=== PATIENT | female | born 1980 | race Caucasian/White ===

== ENCOUNTER → 2019-12-12 | Outpatient (REF) | payer OTHER ==
[~2019-12-12] MED LIST: INFL10VL IV; METH2.5T48 PO
[2019-12-12 17:08] LABS: BASO % 0.3 % (0.0-1.0); EOS % 0.6 % (0.0-3.0); HEMATOCRIT 41.9 % (36.0-47.0); HEMOGLOBIN 14.6 g/dl (12.0-15.5); LYMPH # 2.1 10^3/uL (1.5-5.0); LYMPH % 32.7 % (24.0-44.0); MEAN CORPUSCULAR HEMOGLOBIN 31.6 pg (27.0-33.0); MEAN CORPUSCULAR HGB CONC 34.8 g/dl (32.0-36.5); MEAN CORPUSCULAR VOLUME 90.7 fl (80.0-96.0); MONO # 0.3 10^3/uL (0.0-0.8); MONO % 4.6 % (0.0-5.0); NEUTROPHILS % 61.3 % (36.0-66.0); PLATELET COUNT, AUTOMATED 168 10^3/uL (150-450); RED BLOOD COUNT 4.62 10^6/uL (4.00-5.40); WHITE BLOOD COUNT 6.5 10^3/uL (4.0-10.0)
[2019-12-12 17:32] LABS: ALBUMIN 4.5 GM/DL (3.2-5.2); ALT/SGPT 39 U/L (12-78); BILIRUBIN,TOTAL 0.7 MG/DL (0.2-1.0); BLOOD UREA NITROGEN 9 MG/DL (7-18); C REACTIVE PROTEIN QUANTITATIV < 0.30 MG/DL (0.00-0.30); CALCIUM LEVEL 8.6 MG/DL (8.5-10.1); CARBON DIOXIDE LEVEL 25 MEQ/L (21-32); CHLORIDE LEVEL 111 MEQ/L (98-107); CREATININE FOR GFR 0.76 MG/DL (0.55-1.30); GLOMERULAR FILTRATION RATE > 60.0 (>58); GLUCOSE, FASTING 94 MG/DL (70-100); POTASSIUM SERUM 3.8 MEQ/L (3.5-5.1); SODIUM LEVEL 141 MEQ/L (136-145)
[2019-12-12 17:50] LABS: ERYTHROCYTE SEDIMENTATION RATE 6 mm/hr (0-20)
[2019-12-14 11:30] LABS: HEPATITIS B SURFACE ANTIGEN NEGATIVE (NEGATIVE)
[2019-12-14 14:05] LABS: HEPATITIS C VIRUS ABY INDEX < 0.0 INDEX (<0.8)
== END ==
LOC: M SFHCRHEU 14:41
PROVIDERS: ATTEND Internal Medicine
DX: M45.9 Ankylosing spondylitis of unspecified sites in spine (principal)
CPT/HCPCS: 36415; 80053; 85025; 85652; 86140; 86480; 86704; 86803; 87340; G0463

== ENCOUNTER 2019-12-20 07:25 | Outpatient (CLI) | payer OTHER ==
[~2019-12-20] VITALS: Ht 162.6 cm; Wt 79.5 kg
[2019-12-20 07:30] VITALS: BP 117/58
[2019-12-20] MEDS ORDERED: LORATADINE 10 MG TAB PO ONE (07:45)
[2019-12-20] MEDS ORDERED: inFLIXimab INJECTION 400 MG in NS 210 ML IV ONE (07:45)
[2019-12-20] MEDS ORDERED: ACETAMINOPHEN TAB 650MG DOSE (2X325MG) PO ONE (07:45)
[2019-12-20] MEDS ORDERED: METH2.5T48 PO (07:57)
[2019-12-20] MEDS ORDERED: INFL10VL IV (07:57)
== END 2019-12-20 10:30 | disposition home or self-care (01) ==
LOC: M INFU 07:25
PROVIDERS: ATTEND Internal Medicine
DX: M45.9 Ankylosing spondylitis of unspecified sites in spine (principal); H20.9 Unspecified iridocyclitis
CPT/HCPCS: 96413; 96415; J1745

== ENCOUNTER → 2020-01-17 | Outpatient (REF) | payer OTHER | LOC: M SFHCLERA 12:19 | PROVIDERS: ATTEND Nurse Practitioner Family | DX: R53.81 Other malaise (principal) ==

== ENCOUNTER 2020-02-14 08:11 | Outpatient (CLI) | payer OTHER ==
[~2020-02-14] VITALS: Ht 162.6 cm; Wt 79.5 kg
[2020-02-14 08:10] VITALS: BP 104/73
[2020-02-14 08:20] VITALS: BP 121/68
[2020-02-14] MEDS ORDERED: diphenhydrAMINE 50MG/ML VIAL (J1200) IV PRN (08:30)
[2020-02-14] MEDS ORDERED: methylPREDNISolone INJ 125 MG/2 ML VIAL (J2930) IV PRN (08:30)
[2020-02-14] MEDS ORDERED: ALBUTEROL SULFATE 2.5 MG/0.5 ML INH NEB SOLN INH PRN (08:30)
[2020-02-14] MEDS ORDERED: ACETAMINOPHEN 650MG ER TAB (TYLENOL ARTHRITIS) PO ONE (08:30)
[2020-02-14] MEDS ORDERED: EPINEPHrine INJ 1 MG/ML 1ML AMP IM PRN (08:30)
[2020-02-14] MEDS ORDERED: inFLIXimab INJECTION 400 MG in NS 210 ML IV ONE (08:45)
[2020-02-14] MEDS ORDERED: LORATADINE 10 MG TAB PO ONE (08:45)
[2020-02-14 08:51] VITALS: BP 114/67
[2020-02-14 11:18] VITALS: BP 111/79
== END 2020-02-14 11:15 | disposition home or self-care (01) ==
LOC: M INFU 08:11
PROVIDERS: ATTEND Internal Medicine
DX: M45.9 Ankylosing spondylitis of unspecified sites in spine (principal); H20.9 Unspecified iridocyclitis
CPT/HCPCS: 96361; 96374; 96375; 96413; 96415; J1745

== ENCOUNTER → 2020-02-18 | Outpatient (REF) | payer OTHER ==
[2020-02-18 16:15] LABS: BASO % 0.2 % (0.0-1.0); EOS # 0.1 10^3/uL (0.0-0.5); EOS % 0.7 % (0.0-3.0); HEMATOCRIT 41.8 % (36.0-47.0); HEMOGLOBIN 14.6 g/dl (12.0-15.5); LYMPH # 2.5 10^3/uL (1.5-5.0); LYMPH % 24.6 % (24.0-44.0); MEAN CORPUSCULAR HEMOGLOBIN 30.9 pg (27.0-33.0); MEAN CORPUSCULAR HGB CONC 34.9 g/dl (32.0-36.5); MEAN CORPUSCULAR VOLUME 88.6 fl (80.0-96.0); MONO # 0.5 10^3/uL (0.0-0.8); MONO % 4.6 % (0.0-5.0); NEUTROPHILS # 7.1 10^3/uL (1.5-8.5); NEUTROPHILS % 69.5 % (36.0-66.0); PLATELET COUNT, AUTOMATED 175 10^3/uL (150-450); RED BLOOD COUNT 4.72 10^6/uL (4.00-5.40); WHITE BLOOD COUNT 10.2 10^3/uL (4.0-10.0)
[2020-02-18 16:38] LABS: ERYTHROCYTE SEDIMENTATION RATE 4 mm/hr (0-20)
[2020-02-18 16:42] LABS: ALBUMIN 4.2 GM/DL (3.2-5.2); ALT/SGPT 33 U/L (12-78); BLOOD UREA NITROGEN 10 MG/DL (7-18); C REACTIVE PROTEIN QUANTITATIV < 0.30 MG/DL (0.00-0.30); CARBON DIOXIDE LEVEL 27 MEQ/L (21-32); CHLORIDE LEVEL 108 MEQ/L (98-107); GLOMERULAR FILTRATION RATE > 60.0 (>58); GLUCOSE, FASTING 80 MG/DL (70-100); POTASSIUM SERUM 3.7 MEQ/L (3.5-5.1); SODIUM LEVEL 140 MEQ/L (136-145); TOTAL PROTEIN 7.2 GM/DL (6.4-8.2)
== END ==
LOC: M SFHCRHEU 13:11
PROVIDERS: ATTEND Internal Medicine
DX: M45.9 Ankylosing spondylitis of unspecified sites in spine (principal)

== ENCOUNTER 2020-04-10 07:43 | Outpatient (CLI) | payer OTHER ==
[~2020-04-10] VITALS: Ht 162.6 cm; Wt 79.5 kg
[2020-04-10] VITALS (8 sets, daily range): BP systolic 101–128; BP diastolic 60–75
[2020-04-10] MEDS ORDERED: LORATADINE 10 MG TAB PO ONE (08:00)
[2020-04-10] MEDS ORDERED: diphenhydrAMINE 50MG/ML VIAL (J1200) IV PRN (08:00)
[2020-04-10] MEDS ORDERED: ALBUTEROL SULFATE 2.5 MG/0.5 ML INH NEB SOLN INH PRN (08:00)
[2020-04-10] MEDS ORDERED: methylPREDNISolone INJ 125 MG/2 ML VIAL (J2930) IV PRN (08:00)
[2020-04-10] MEDS ORDERED: EPINEPHrine INJ 1 MG/ML 1ML AMP IM PRN (08:00)
[2020-04-10] MEDS ORDERED: ACETAMINOPHEN TAB 650MG DOSE (2X325MG) PO ONE (08:00)
[2020-04-10] MEDS ORDERED: inFLIXimab INJECTION 400 MG in NS 210 ML IV ONE (08:30)
== END 2020-04-10 10:15 | disposition home or self-care (01) ==
LOC: M INFU 07:43
PROVIDERS: ATTEND Internal Medicine
DX: M45.9 Ankylosing spondylitis of unspecified sites in spine (principal); H20.9 Unspecified iridocyclitis
CPT/HCPCS: 96413; 96415; J1745

== ENCOUNTER 2020-06-05 08:00 | Outpatient (CLI) | payer OTHER ==
[~2020-06-05 08:00] MED LIST changes: +ACETAMINOPHEN TAB 650MG DOSE (2X325MG) As Ordered ONE; +LORATADINE 10 MG TAB As Ordered ONE; +inFLIXimab 100MG/10ML VIAL (REMICADE) J1745 PER 10MG ONE
== END 2020-06-05 10:30 | disposition home or self-care (01) ==
LOC: M INFU 08:00
PROVIDERS: ATTEND Internal Medicine
DX: M45.9 Ankylosing spondylitis of unspecified sites in spine (principal)
CPT/HCPCS: 96413; 96415; J1745

== ENCOUNTER → 2020-06-24 | Outpatient (REF) | payer OTHER ==
[~2020-06-24] MED LIST changes: -ACETAMINOPHEN TAB 650MG DOSE (2X325MG) As Ordered ONE; -LORATADINE 10 MG TAB As Ordered ONE; -inFLIXimab 100MG/10ML VIAL (REMICADE) J1745 PER 10MG ONE
[2020-08-12 12:07] LABS: BASO % 0.3 % (0.0-1.0); EOS # 0.1 10^3/uL (0.0-0.5); EOS % 1.4 % (0.0-3.0); ERYTHROCYTE SEDIMENTATION RATE 4 mm/hr (0-20); HEMATOCRIT 41.9 % (36.0-47.0); HEMOGLOBIN 14.7 g/dl (12.0-15.5); LYMPH # 2.3 10^3/uL (1.5-5.0); LYMPH % 35.8 % (24.0-44.0); MEAN CORPUSCULAR HEMOGLOBIN 32.7 pg (27.0-33.0); MEAN CORPUSCULAR HGB CONC 35.1 g/dl (32.0-36.5); MEAN CORPUSCULAR VOLUME 93.3 fl (80.0-96.0); MONO # 0.4 10^3/uL (0.0-0.8); MONO % 5.9 % (0.0-5.0); NEUTROPHILS # 3.5 10^3/uL (1.5-8.5); NEUTROPHILS % 56.1 % (36.0-66.0); PLATELET COUNT, AUTOMATED 188 10^3/uL (150-450); RED BLOOD COUNT 4.49 10^6/uL (4.00-5.40); WHITE BLOOD COUNT 6.3 10^3/uL (4.0-10.0)
[2020-09-14 08:37] LABS: ALT/SGPT 69 U/L (12-78); BILIRUBIN,TOTAL 0.7 MG/DL (0.2-1.0); BLOOD UREA NITROGEN 8 MG/DL (7-18); CALCIUM LEVEL 8.9 MG/DL (8.5-10.1); CARBON DIOXIDE LEVEL 27 MEQ/L (21-32); CHLORIDE LEVEL 110 MEQ/L (98-107); CREATININE FOR GFR 0.78 MG/DL (0.55-1.30); GLOMERULAR FILTRATION RATE > 60.0 (>58); GLUCOSE, FASTING 64 MG/DL (70-100); POTASSIUM SERUM 4.1 MEQ/L (3.5-5.1); SODIUM LEVEL 140 MEQ/L (136-145); TOTAL PROTEIN 6.8 GM/DL (6.4-8.2)
== END ==
LOC: M SFHCRHEU 14:41
PROVIDERS: ATTEND Internal Medicine Rheumatology
DX: M45.9 Ankylosing spondylitis of unspecified sites in spine (principal)

== ENCOUNTER 2020-08-01 09:55 | Outpatient (CLI) | payer OTHER ==
[~2020-08-01] VITALS: Ht 170.2 cm; Wt 80.0 kg
[2020-08-01 10:20] VITALS: BP 110/71
[2020-08-01] MEDS ORDERED: ACETAMINOPHEN 650MG PO PRIOR TO INFUSION PO ONE (10:30)
[2020-08-01] MEDS ORDERED: NS 1,000 ML IV SCH (10:30)
[2020-08-01] MEDS ORDERED: inFLIXimab INJECTION 400 MG in NS 210 ML IV ONE (10:30)
[2020-08-01] MEDS ORDERED: LORATADINE 10 MG TAB PO ONE (10:30)
[2020-08-01 11:00] VITALS: BP 110/71
[2020-08-01 11:30] VITALS: BP 114/71
[2020-08-01 12:45] VITALS: BP 106/63
[2020-08-01 12:57] VITALS: BP 99/65
== END 2020-08-01 13:00 | disposition home or self-care (01) ==
LOC: M INFU 09:55
PROVIDERS: ATTEND Internal Medicine
DX: M45.9 Ankylosing spondylitis of unspecified sites in spine (principal)
CPT/HCPCS: 96413; 96415; J1745

== ENCOUNTER 2020-09-12 10:05 | Outpatient (CLI) | payer OTHER ==
[2020-09-12] MEDS ORDERED: NS 1,000 ML IV SCH (10:30)
[2020-09-12] MEDS ORDERED: ACETAMINOPHEN 650MG PO PRIOR TO INFUSION PO ONE (10:30)
[2020-09-12] MEDS ORDERED: inFLIXimab INJECTION 400 MG in NS 210 ML IV ONE (10:30)
[2020-09-12] MEDS ORDERED: LORATADINE 10 MG TAB PO ONE (10:30)
[2020-09-12 10:45] VITALS: BP 119/75
[2020-09-12 11:00] VITALS: BP 112/76
[2020-09-12 12:05] VITALS: BP 108/80
== END 2020-09-12 12:05 | disposition home or self-care (01) ==
LOC: M INFU 10:05
PROVIDERS: ATTEND Internal Medicine
DX: M45.9 Ankylosing spondylitis of unspecified sites in spine (principal)
CPT/HCPCS: 96413; J1745

== ENCOUNTER → 2020-09-29 | Outpatient (CLI) | payer OTHER ==
[2020-09-29 12:53] LABS: BASO % 0.2 % (0.0-1.0); EOS % 0.4 % (0.0-3.0); HEMATOCRIT 41.4 % (36.0-47.0); HEMOGLOBIN 14.9 g/dl (12.0-15.5); LYMPH # 3.2 10^3/uL (1.5-5.0); LYMPH % 34.2 % (24.0-44.0); MEAN CORPUSCULAR HEMOGLOBIN 31.8 pg (27.0-33.0); MEAN CORPUSCULAR VOLUME 88.3 fl (80.0-96.0); MONO # 0.5 10^3/uL (0.0-0.8); MONO % 5.8 % (0.0-5.0); NEUTROPHILS # 5.5 10^3/uL (1.5-8.5); NEUTROPHILS % 58.9 % (36.0-66.0); PLATELET COUNT, AUTOMATED 164 10^3/uL (150-450); RED BLOOD COUNT 4.69 10^6/uL (4.00-5.40); WHITE BLOOD COUNT 9.3 10^3/uL (4.0-10.0)
[2020-09-29 13:20] LABS: ERYTHROCYTE SEDIMENTATION RATE 5 mm/hr (0-20)
[2020-09-29 15:45] LABS: ALBUMIN 4.2 GM/DL (3.2-5.2); ALT/SGPT 32 U/L (12-78); BILIRUBIN,TOTAL 0.8 MG/DL (0.2-1.0); BLOOD UREA NITROGEN 11 MG/DL (7-18); CALCIUM LEVEL 9.1 MG/DL (8.5-10.1); CARBON DIOXIDE LEVEL 23 MEQ/L (21-32); CHLORIDE LEVEL 110 MEQ/L (98-107); CREATININE FOR GFR 0.86 MG/DL (0.55-1.30); GLOMERULAR FILTRATION RATE > 60.0 (>58); GLUCOSE, FASTING 103 MG/DL (70-100); SODIUM LEVEL 140 MEQ/L (136-145)
== END ==
LOC: M LAB 12:04
PROVIDERS: ATTEND Internal Medicine
DX: M45.9 Ankylosing spondylitis of unspecified sites in spine (principal)

== ENCOUNTER 2020-10-24 10:02 | Outpatient (CLI) | payer OTHER ==
[~2020-10-24] VITALS: Ht 170.2 cm; Wt 80.0 kg
[2020-10-24 10:00] VITALS: BP 161/73
[2020-10-24] MEDS ORDERED: ACETAMINOPHEN 650MG PO PRIOR TO INFUSION PO ONE (10:30)
[2020-10-24] MEDS ORDERED: LORATADINE 10 MG TAB PO ONE (10:30)
[2020-10-24] MEDS ORDERED: NS 1,000 ML IV SCH (10:30)
[2020-10-24] MEDS ORDERED: inFLIXimab INJECTION 400 MG in NS 210 ML IV ONE (10:30)
[2020-10-24 10:39] VITALS: BP 161/73
[2020-10-24 11:00] VITALS: BP 102/64
[2020-10-24 12:00] VITALS: BP 98/64
== END 2020-10-24 12:00 | disposition home or self-care (01) ==
LOC: M INFU 10:02
PROVIDERS: ATTEND Internal Medicine
DX: M45.9 Ankylosing spondylitis of unspecified sites in spine (principal)
CPT/HCPCS: 96413; J1745

== ENCOUNTER 2020-12-05 10:19 | Outpatient (CLI) | payer OTHER ==
[2020-12-05 10:20] VITALS: BP 122/83
[2020-12-05] MEDS ORDERED: NS 1,000 ML IV SCH (10:30)
[2020-12-05] MEDS ORDERED: inFLIXimab INJECTION 400 MG in NS 210 ML IV ONE (10:30)
[2020-12-05] MEDS ORDERED: ACETAMINOPHEN 650MG PO PRIOR TO INFUSION PO ONE (10:30)
[2020-12-05] MEDS ORDERED: LORATADINE 10 MG TAB PO ONE (10:30)
[2020-12-05] MEDS ORDERED: VITMTA PO (10:41)
[2020-12-05 10:43] VITALS: BP 122/83
[2020-12-05 11:05] VITALS: BP 118/77
[2020-12-05 12:09] VITALS: BP 120/87
== END 2020-12-05 12:10 | disposition home or self-care (01) ==
LOC: M INFU 10:19
PROVIDERS: ATTEND Internal Medicine
DX: M45.9 Ankylosing spondylitis of unspecified sites in spine (principal)
CPT/HCPCS: 96413; J1745

== ENCOUNTER 2021-01-16 10:11 | Outpatient (CLI) | payer OTHER ==
[~2021-01-16] VITALS: Ht 162.6 cm; Wt 76.8 kg
[~2021-01-16 10:11] MED LIST changes: +ALBUTEROL SULFATE 2.5 MG/0.5 ML INH NEB SOLN INH PRN; +EPINEPHrine INJ 1 MG/ML 1ML AMP IM PRN; +VITMTA PO; +diphenhydrAMINE 50MG/ML VIAL (J1200) IV PRN; +methylPREDNISolone 125MG 2ML VIAL IV PRN
[2021-01-16 10:15] VITALS: BP 111/76
[2021-01-16] MEDS ORDERED: ACETAMINOPHEN TAB 650MG DOSE (2X325MG) PO ONE (10:30)
[2021-01-16] MEDS ORDERED: inFLIXimab INJECTION 600 MG in NS 190 ML IV ONE (10:30)
[2021-01-16] MEDS ORDERED: LORATADINE 10 MG TAB PO ONE (10:30)
[2021-01-16 11:05] VITALS: BP 118/74
[2021-01-16 11:50] VITALS: BP 113/76
== END 2021-01-16 12:05 | disposition home or self-care (01) ==
LOC: M INFU 10:11
PROVIDERS: ATTEND Internal Medicine
DX: M45.9 Ankylosing spondylitis of unspecified sites in spine (principal)
CPT/HCPCS: 96413; J1745

== ENCOUNTER → 2021-01-22 | Outpatient (REF) | payer OTHER ==
[~2021-01-22] MED LIST changes: -ALBUTEROL SULFATE 2.5 MG/0.5 ML INH NEB SOLN INH PRN; -EPINEPHrine INJ 1 MG/ML 1ML AMP IM PRN; -diphenhydrAMINE 50MG/ML VIAL (J1200) IV PRN; -methylPREDNISolone 125MG 2ML VIAL IV PRN
[2021-01-22 16:46] LABS: BASO % 0.4 % (0.0-1.0); EOS # 0.1 10^3/uL (0.0-0.5); EOS % 0.6 % (0.0-3.0); HEMATOCRIT 42.8 % (36.0-47.0); HEMOGLOBIN 14.8 g/dl (12.0-15.5); LYMPH # 2.3 10^3/uL (1.5-5.0); LYMPH % 28.4 % (24.0-44.0); MEAN CORPUSCULAR HEMOGLOBIN 30.9 pg (27.0-33.0); MEAN CORPUSCULAR HGB CONC 34.6 g/dl (32.0-36.5); MEAN CORPUSCULAR VOLUME 89.4 fl (80.0-96.0); MONO # 0.3 10^3/uL (0.0-0.8); MONO % 4.2 % (2.0-8.0); NEUTROPHILS # 5.2 10^3/uL (1.5-8.5); PLATELET COUNT, AUTOMATED 139 10^3/uL (150-450); RED BLOOD COUNT 4.79 10^6/uL (4.00-5.40); WHITE BLOOD COUNT 7.9 10^3/uL (4.0-10.0)
[2021-01-22 16:49] LABS: ALBUMIN 4.3 GM/DL (3.2-5.2); ALT/SGPT 28 U/L (12-78); BILIRUBIN,TOTAL 0.7 MG/DL (0.2-1.0); BLOOD UREA NITROGEN 8 MG/DL (7-18); CALCIUM LEVEL 9.2 MG/DL (8.5-10.1); CARBON DIOXIDE LEVEL 28 MEQ/L (21-32); CHLORIDE LEVEL 108 MEQ/L (98-107); CREATININE FOR GFR 0.75 MG/DL (0.55-1.30); GLOMERULAR FILTRATION RATE > 60.0 (>58); GLUCOSE, FASTING 84 MG/DL (70-100); SODIUM LEVEL 140 MEQ/L (136-145); TOTAL PROTEIN 7.1 GM/DL (6.4-8.2)
[2021-01-22 18:11] LABS: ERYTHROCYTE SEDIMENTATION RATE 4 mm/hr (0-20)
== END ==
LOC: M SFHCRHEU 11:35
PROVIDERS: ATTEND Internal Medicine
DX: M45.9 Ankylosing spondylitis of unspecified sites in spine (principal)
CPT/HCPCS: 80053; 85025; 85652; 86140; G0463

== ENCOUNTER 2021-02-27 09:43 | Outpatient (CLI) | payer OTHER ==
[~2021-02-27] VITALS: Ht 162.6 cm; Wt 76.8 kg
[2021-02-27 09:50] VITALS: BP 127/74
[2021-02-27] MEDS ORDERED: ACETAMINOPHEN 650MG PO PRIOR TO INFUSION PO ONE (10:30)
[2021-02-27] MEDS ORDERED: LORATADINE 10 MG TAB PO ONE (10:30)
[2021-02-27] MEDS ORDERED: NS 1,000 ML IV SCH (10:30)
[2021-02-27] MEDS ORDERED: inFLIXimab INJECTION 600 MG in NS 190 ML IV ONE (10:30)
[2021-02-27 10:45] VITALS: BP 123/78
[2021-02-27 11:48] VITALS: BP 128/86
== END 2021-02-27 11:50 | disposition home or self-care (01) ==
LOC: M INFU 09:43
PROVIDERS: ATTEND Internal Medicine
DX: M45.9 Ankylosing spondylitis of unspecified sites in spine (principal)
CPT/HCPCS: 96413; J1745

== ENCOUNTER 2021-04-10 13:32 | Outpatient (CLI) | payer OTHER ==
[~2021-04-10] VITALS: Ht 162.6 cm; Wt 76.8 kg
[~2021-04-10 13:32] MED LIST changes: +ACETAMINOPHEN 650MG PO PRIOR TO INFUSION PO ONE; +ALBUTEROL SULFATE 2.5 MG/0.5 ML INH NEB SOLN INH PRN; +EPINEPHrine INJ 1 MG/ML 1ML AMP IM PRN; +LORATADINE 10 MG TAB PO ONE; +NS 1,000 ML IV SCH; +diphenhydrAMINE 50MG/ML VIAL (J1200) IV PRN; +inFLIXimab INJECTION 600 MG in NS 190 ML IV ONE; +methylPREDNISolone 125MG 2ML VIAL IV PRN
[2021-04-10 13:40] VITALS: BP 154/87
[2021-04-10 14:31] VITALS: BP 112/68
[2021-04-10 15:15] VITALS: BP 118/90
== END 2021-04-10 15:30 | disposition home or self-care (01) ==
LOC: M INFU 13:32
PROVIDERS: ATTEND Internal Medicine
DX: M45.9 Ankylosing spondylitis of unspecified sites in spine (principal)
CPT/HCPCS: 96413; J1745

== ENCOUNTER → 2021-05-14 | Outpatient (CLI) | payer OTHER ==
[~2021-05-14] MED LIST changes: -ACETAMINOPHEN 650MG PO PRIOR TO INFUSION PO ONE; -ALBUTEROL SULFATE 2.5 MG/0.5 ML INH NEB SOLN INH PRN; -EPINEPHrine INJ 1 MG/ML 1ML AMP IM PRN; -LORATADINE 10 MG TAB PO ONE; -NS 1,000 ML IV SCH; -diphenhydrAMINE 50MG/ML VIAL (J1200) IV PRN; -inFLIXimab INJECTION 600 MG in NS 190 ML IV ONE; -methylPREDNISolone 125MG 2ML VIAL IV PRN
[2021-05-14 14:29] LABS: BASO % 0.4 % (0.0-1.0); EOS # 0.1 10^3/uL (0.0-0.5); EOS % 1.3 % (0.0-3.0); HEMATOCRIT 43.7 % (36.0-47.0); HEMOGLOBIN 15.1 g/dl (12.0-15.5); LYMPH # 2.4 10^3/uL (1.5-5.0); LYMPH % 34.2 % (24.0-44.0); MEAN CORPUSCULAR HEMOGLOBIN 30.8 pg (27.0-33.0); MEAN CORPUSCULAR HGB CONC 34.6 g/dl (32.0-36.5); MEAN CORPUSCULAR VOLUME 89.2 fl (80.0-96.0); MONO # 0.4 10^3/uL (0.0-0.8); MONO % 5.5 % (2.0-8.0); NEUTROPHILS % 58.2 % (36.0-66.0); PLATELET COUNT, AUTOMATED 154 10^3/uL (150-450); WHITE BLOOD COUNT 6.9 10^3/uL (4.0-10.0)
[2021-05-14 14:51] LABS: ALBUMIN 4.1 GM/DL (3.2-5.2); ALT/SGPT 30 U/L (12-78); BILIRUBIN,DIRECT 0.2 MG/DL (0.0-0.2); BILIRUBIN,TOTAL 0.8 MG/DL (0.2-1.0); BLOOD UREA NITROGEN 5 MG/DL (7-18); CALCIUM LEVEL 8.9 MG/DL (8.5-10.1); CARBON DIOXIDE LEVEL 26 MEQ/L (21-32); CHLORIDE LEVEL 107 MEQ/L (98-107); GLOMERULAR FILTRATION RATE > 60.0 (>58); GLUCOSE, FASTING 88 MG/DL (70-100); POTASSIUM SERUM 3.8 MEQ/L (3.5-5.1); SODIUM LEVEL 141 MEQ/L (136-145); TOTAL PROTEIN 7.3 GM/DL (6.4-8.2)
[2021-05-14 14:56] LABS: ERYTHROCYTE SEDIMENTATION RATE 7 mm/hr (0-20)
== END ==
LOC: M LAB 14:01
PROVIDERS: ATTEND Internal Medicine
DX: H20.9 Unspecified iridocyclitis (principal)

== ENCOUNTER 2021-05-22 09:50 | Outpatient (CLI) | payer OTHER ==
[~2021-05-22] VITALS: Ht 162.6 cm; Wt 76.6 kg
[~2021-05-22 09:50] MED LIST changes: +ALBUTEROL SULFATE 2.5 MG/0.5 ML INH NEB SOLN INH PRN; +EPINEPHrine INJ 1 MG/ML 1ML AMP IM PRN; +diphenhydrAMINE 50MG/ML VIAL (J1200) IV PRN; +methylPREDNISolone 125MG 2ML VIAL IV PRN
[2021-05-22 09:55] VITALS: BP 130/70
[2021-05-22] MEDS ORDERED: inFLIXimab INJECTION 600 MG in NS 190 ML IV ONE (10:30)
[2021-05-22] MEDS ORDERED: ACETAMINOPHEN 650MG PO PRIOR TO INFUSION PO ONE (10:30)
[2021-05-22] MEDS ORDERED: LORATADINE 10 MG TAB PO ONE (10:30)
[2021-05-22 10:48] VITALS: BP 103/71
[2021-05-22 11:45] VITALS: BP 119/73
== END 2021-05-22 11:45 | disposition home or self-care (01) ==
LOC: M INFU 09:50
PROVIDERS: ATTEND Internal Medicine
DX: M45.9 Ankylosing spondylitis of unspecified sites in spine (principal)
CPT/HCPCS: 96413; J1745

== ENCOUNTER → 2021-06-04 | Outpatient (REF) | payer OTHER ==
[~2021-06-04] MED LIST changes: -ALBUTEROL SULFATE 2.5 MG/0.5 ML INH NEB SOLN INH PRN; -EPINEPHrine INJ 1 MG/ML 1ML AMP IM PRN; -diphenhydrAMINE 50MG/ML VIAL (J1200) IV PRN; -methylPREDNISolone 125MG 2ML VIAL IV PRN
== END ==
LOC: M SFHCRHEU 13:25
PROVIDERS: ATTEND Internal Medicine
DX: M45.9 Ankylosing spondylitis of unspecified sites in spine (principal)
CPT/HCPCS: 80230; 82397; G0463

== ENCOUNTER 2021-06-26 10:18 | Outpatient (CLI) | payer OTHER ==
[~2021-06-26 10:18] MED LIST changes: +ALBUTEROL SULFATE 2.5 MG/0.5 ML INH NEB SOLN INH PRN; +EPINEPHrine INJ 1 MG/ML 1ML AMP IM PRN; +diphenhydrAMINE 50MG/ML VIAL (J1200) IV PRN; +methylPREDNISolone 125MG 2ML VIAL IV PRN
[2021-06-26 10:30] VITALS: BP 114/64
[2021-06-26] MEDS ORDERED: NS 1,000 ML IV SCH (10:30)
[2021-06-26] MEDS ORDERED: inFLIXimab INJECTION 600 MG in NS 190 ML IV ONE (10:30)
[2021-06-26 11:20] VITALS: BP 102/65
[2021-06-26 12:15] VITALS: BP 116/71
== END 2021-06-26 12:15 | disposition home or self-care (01) ==
LOC: M INFU 10:18
PROVIDERS: ATTEND Internal Medicine
DX: M45.9 Ankylosing spondylitis of unspecified sites in spine (principal)
CPT/HCPCS: 96413; J1745

== ENCOUNTER 2021-08-07 10:17 | Outpatient (CLI) | payer OTHER ==
[~2021-08-07] VITALS: Ht 162.6 cm; Wt 76.2 kg
[2021-08-07 10:25] VITALS: BP 116/77
[2021-08-07] MEDS ORDERED: NS 1,000 ML IV SCH (10:30)
[2021-08-07] MEDS ORDERED: inFLIXimab INJECTION 600 MG in NS 190 ML IV ONE (10:30)
[2021-08-07 10:39] VITALS: BP 116/77
[2021-08-07 11:45] VITALS: BP 118/57
[2021-08-07 12:33] VITALS: BP 135/68
== END 2021-08-07 12:30 | disposition home or self-care (01) ==
LOC: M INFU 10:17
PROVIDERS: ATTEND Internal Medicine
DX: M45.9 Ankylosing spondylitis of unspecified sites in spine (principal)
CPT/HCPCS: 96413; J1745

== ENCOUNTER 2021-09-18 10:11 | Outpatient (CLI) | payer OTHER ==
[~2021-09-18] VITALS: Ht 162.6 cm; Wt 76.2 kg
[~2021-09-18 10:11] MED LIST changes: -ALBUTEROL SULFATE 2.5 MG/0.5 ML INH NEB SOLN INH PRN; -EPINEPHrine INJ 1 MG/ML 1ML AMP IM PRN; -diphenhydrAMINE 50MG/ML VIAL (J1200) IV PRN; -methylPREDNISolone 125MG 2ML VIAL IV PRN
[2021-09-18] MEDS ORDERED: inFLIXimab INJECTION 600 MG in NS 190 ML IV ONE (10:30)
[2021-09-18 10:37] VITALS: BP 126/59
[2021-09-18 11:25] VITALS: BP 107/65
[2021-09-18 12:05] VITALS: BP 125/88
== END 2021-09-18 12:25 | disposition home or self-care (01) ==
LOC: M INFU 10:11
PROVIDERS: ATTEND Internal Medicine
DX: M45.9 Ankylosing spondylitis of unspecified sites in spine (principal)
CPT/HCPCS: 96413; J1745

== ENCOUNTER 2021-10-29 10:26 | Outpatient (CLI) | payer OTHER ==
[~2021-10-29] VITALS: Ht 162.6 cm; Wt 76.2 kg
[2021-10-29] MEDS ORDERED: inFLIXimab INJECTION 600 MG in NS 190 ML IV ONE (10:30)
[2021-10-29 10:43] VITALS: BP 117/66
[2021-10-29 10:44] VITALS: BP 117/66
[2021-10-29 11:15] VITALS: BP 140/62
[2021-10-29 12:00] VITALS: BP 108/65
== END 2021-10-29 12:05 | disposition home or self-care (01) ==
LOC: M INFU 10:26
PROVIDERS: ATTEND Internal Medicine
DX: M45.9 Ankylosing spondylitis of unspecified sites in spine (principal)

== ENCOUNTER 2021-12-11 10:03 | Outpatient (CLI) | payer OTHER ==
[~2021-12-11] VITALS: Ht 162.6 cm; Wt 83.2 kg
[2021-12-11 10:28] VITALS: BP 130/76
[2021-12-11] MEDS ORDERED: LORATADINE 10 MG TAB PO ONE (10:30)
[2021-12-11] MEDS ORDERED: inFLIXimab INJECTION 600 MG in NS 190 ML IV ONE (10:30)
[2021-12-11] MEDS ORDERED: NS 1,000 ML IV SCH (10:30)
[2021-12-11] MEDS ORDERED: ACETAMINOPHEN 650MG PO PRIOR TO INFUSION PO ONE (10:30)
[2021-12-11 11:25] VITALS: BP 112/75
[2021-12-11 12:10] VITALS: BP 110/67
== END 2021-12-11 12:20 | disposition home or self-care (01) ==
LOC: M INFU 10:03
PROVIDERS: ATTEND Internal Medicine
DX: M45.9 Ankylosing spondylitis of unspecified sites in spine (principal)
CPT/HCPCS: 96413; J1745

== ENCOUNTER 2022-01-22 10:30 | Outpatient (CLI) | payer OTHER ==
[~2022-01-22 10:30] MED LIST changes: +ACETAMINOPHEN 650MG PO PRIOR TO INFUSION PO ONE; +ALBUTEROL SULFATE 2.5 MG/0.5 ML INH NEB SOLN INH PRN; +EPINEPHrine INJ 1 MG/ML 1ML AMP IM PRN; +LORATADINE 10 MG TAB PO ONE; +diphenhydrAMINE 50MG/ML VIAL (J1200) IV PRN; +inFLIXimab INJECTION 600 MG in NS 190 ML IV ONE; +methylPREDNISolone 125MG 2ML VIAL IV PRN
[2022-01-22 10:43] VITALS: BP 146/70
[2022-01-22 12:35] VITALS: BP 137/77
== END 2022-01-22 12:40 | disposition home or self-care (01) ==
LOC: M INFU 10:30
PROVIDERS: ATTEND Internal Medicine
DX: M45.9 Ankylosing spondylitis of unspecified sites in spine (principal)
CPT/HCPCS: 96413; J1745

== ENCOUNTER → 2022-03-01 | Outpatient (CLI) | payer OTHER ==
[~2022-03-01] MED LIST changes: -ACETAMINOPHEN 650MG PO PRIOR TO INFUSION PO ONE; -ALBUTEROL SULFATE 2.5 MG/0.5 ML INH NEB SOLN INH PRN; -EPINEPHrine INJ 1 MG/ML 1ML AMP IM PRN; -LORATADINE 10 MG TAB PO ONE; -diphenhydrAMINE 50MG/ML VIAL (J1200) IV PRN; -inFLIXimab INJECTION 600 MG in NS 190 ML IV ONE; -methylPREDNISolone 125MG 2ML VIAL IV PRN
[2022-03-01 11:31] LABS: BASO % 0.4 % (0.0-1.0); EOS # 0.1 10^3/uL (0.0-0.5); EOS % 1.4 % (0.0-3.0); HEMATOCRIT 38.9 % (36.0-47.0); HEMOGLOBIN 13.4 g/dl (12.0-15.5); LYMPH % 28.9 % (24.0-44.0); MEAN CORPUSCULAR HEMOGLOBIN 31.6 pg (27.0-33.0); MEAN CORPUSCULAR HGB CONC 34.4 g/dl (32.0-36.5); MEAN CORPUSCULAR VOLUME 91.7 fl (80.0-96.0); MONO # 0.4 10^3/uL (0.0-0.8); MONO % 5.2 % (2.0-8.0); NEUTROPHILS # 4.5 10^3/uL (1.5-8.5); NEUTROPHILS % 63.7 % (36.0-66.0); PLATELET COUNT, AUTOMATED 179 10^3/uL (150-450); RED BLOOD COUNT 4.24 10^6/uL (4.00-5.40); WHITE BLOOD COUNT 7.1 10^3/uL (4.0-10.0)
[2022-03-01 11:56] LABS: ERYTHROCYTE SEDIMENTATION RATE 6 mm/hr (0-20)
[2022-03-01 12:48] LABS: ALBUMIN 3.7 GM/DL (3.2-5.2); ALT/SGPT 28 U/L (12-78); BILIRUBIN,DIRECT 0.1 MG/DL (0.0-0.2); BILIRUBIN,TOTAL 0.6 MG/DL (0.2-1.0); BLOOD UREA NITROGEN 7 MG/DL (7-18); C REACTIVE PROTEIN QUANTITATIV 0.36 MG/DL (0.00-0.30); CALCIUM LEVEL 9.2 MG/DL (8.5-10.1); CARBON DIOXIDE LEVEL 25 MEQ/L (21-32); CHLORIDE LEVEL 110 MEQ/L (98-107); CREATININE FOR GFR 0.86 MG/DL (0.55-1.30); GLOMERULAR FILTRATION RATE > 60.0 (>58); GLUCOSE, FASTING 110 MG/DL (70-100); POTASSIUM SERUM 4.1 MEQ/L (3.5-5.1); SODIUM LEVEL 140 MEQ/L (136-145); TOTAL PROTEIN 6.6 GM/DL (6.4-8.2)
== END ==
LOC: M LAB 10:31
PROVIDERS: ATTEND Internal Medicine
DX: M54.9 Dorsalgia, unspecified (principal)

== ENCOUNTER 2022-03-05 09:55 | Outpatient (CLI) | payer OTHER ==
[~2022-03-05] VITALS: Ht 162.6 cm; Wt 83.1 kg
[~2022-03-05 09:55] MED LIST changes: +ALBUTEROL SULFATE 2.5 MG/0.5 ML INH NEB SOLN INH PRN; +EPINEPHrine INJ 1 MG/ML 1ML AMP IM PRN; +diphenhydrAMINE 50MG/ML VIAL (J1200) IV PRN; +methylPREDNISolone 125MG 2ML VIAL IV PRN
[2022-03-05 10:00] VITALS: BP 132/99
[2022-03-05] MEDS ORDERED: ACETAMINOPHEN 650MG PO PRIOR TO INFUSION PO ONE (10:30)
[2022-03-05] MEDS ORDERED: inFLIXimab INJECTION 600 MG in NS 190 ML IV ONE (10:30)
[2022-03-05] MEDS ORDERED: LORATADINE 10 MG TAB PO ONE (10:30)
[2022-03-05 11:40] VITALS: BP 122/76
== END 2022-03-05 11:40 | disposition home or self-care (01) ==
LOC: M INFU 09:55
PROVIDERS: ATTEND Internal Medicine
DX: M45.9 Ankylosing spondylitis of unspecified sites in spine (principal)
CPT/HCPCS: 96413; J1745

== ENCOUNTER 2022-04-16 10:08 | Outpatient (CLI) | payer OTHER ==
[~2022-04-16] VITALS: Ht 162.6 cm; Wt 83.1 kg
[2022-04-16] MEDS ORDERED: LORATADINE 10 MG TAB PO ONE (10:30)
[2022-04-16] MEDS ORDERED: ACETAMINOPHEN TAB 650MG DOSE (2X325MG) PO ONE (10:30)
[2022-04-16] MEDS ORDERED: inFLIXimab INJECTION 600 MG in NS 190 ML IV ONE (10:30)
[2022-04-16 10:35] VITALS: BP 111/62
[2022-04-16 11:05] VITALS: BP 111/62
[2022-04-16 12:00] VITALS: BP 112/65
== END 2022-04-16 12:00 | disposition home or self-care (01) ==
LOC: M INFU 10:08
PROVIDERS: ATTEND Internal Medicine
DX: M45.9 Ankylosing spondylitis of unspecified sites in spine (principal)
CPT/HCPCS: 96413; J1745

== ENCOUNTER 2022-04-16 15:12 | Emergency (ER) | payer OTHER ==
[~2022-04-16] VITALS: Ht 162.6 cm; Wt 75.0 kg
[~2022-04-16 15:12] MED LIST changes: -ALBUTEROL SULFATE 2.5 MG/0.5 ML INH NEB SOLN INH PRN; -EPINEPHrine INJ 1 MG/ML 1ML AMP IM PRN; -diphenhydrAMINE 50MG/ML VIAL (J1200) IV PRN; -methylPREDNISolone 125MG 2ML VIAL IV PRN
[2022-04-16 15:29] VITALS: BP 115/76
== END 2022-04-16 19:33 | disposition left against medical advice (07) ==
LOC: M ED 15:12
DX: Z53.21 Procedure and treatment not carried out due to patient leaving prior to being seen by health care provider (principal)

== ENCOUNTER 2022-05-28 10:00 | Outpatient (CLI) | payer OTHER ==
[~2022-05-28] VITALS: Ht 162.6 cm; Wt 83.2 kg
[2022-05-28 10:00] VITALS: BP 118/67
[~2022-05-28 10:00] MED LIST changes: +ALBUTEROL SULFATE 2.5 MG/0.5 ML INH NEB SOLN INH PRN; +EPINEPHrine INJ 1 MG/ML 1ML AMP IM PRN; +diphenhydrAMINE 50MG/ML VIAL (J1200) IV PRN; +methylPREDNISolone 125MG 2ML VIAL IV PRN
[2022-05-28] MEDS ORDERED: ACETAMINOPHEN 650MG PO PRIOR TO INFUSION PO ONE (10:30)
[2022-05-28] MEDS ORDERED: inFLIXimab INJECTION 600 MG in NS 190 ML IV ONE (10:30)
[2022-05-28] MEDS ORDERED: LORATADINE 10 MG TAB PO ONE (10:30)
[2022-05-28 10:50] VITALS: BP 102/55
[2022-05-28 11:48] VITALS: BP 114/68
== END 2022-05-28 11:50 | disposition home or self-care (01) ==
LOC: M INFU 10:00
PROVIDERS: ATTEND Internal Medicine
DX: M45.9 Ankylosing spondylitis of unspecified sites in spine (principal)
CPT/HCPCS: 96413; J1745

== ENCOUNTER 2022-07-09 10:43 | Outpatient (CLI) | payer OTHER ==
[~2022-07-09] VITALS: Ht 162.6 cm; Wt 82.0 kg
[~2022-07-09 10:43] MED LIST changes: +ACETAMINOPHEN TAB 650MG DOSE (2X325MG) PO ONE; +LORATADINE 10 MG TAB PO ONE; +inFLIXimab INJECTION 600 MG in NS 190 ML IV ONE
[2022-07-09 10:59] VITALS: BP 140/73
[2022-07-09 12:55] VITALS: BP 110/74
== END 2022-07-09 13:00 | disposition home or self-care (01) ==
LOC: M INFU 10:43
PROVIDERS: ATTEND Internal Medicine
DX: M45.4 Ankylosing spondylitis of thoracic region (principal)
CPT/HCPCS: 96413; J1745

== ENCOUNTER 2022-08-20 10:15 | Outpatient (CLI) | payer OTHER ==
[~2022-08-20] VITALS: Ht 162.6 cm; Wt 81.8 kg
[2022-08-20 10:15] VITALS: BP 115/72
[~2022-08-20 10:15] MED LIST changes: -ACETAMINOPHEN TAB 650MG DOSE (2X325MG) PO ONE; -ALBUTEROL SULFATE 2.5 MG/0.5 ML INH NEB SOLN INH PRN; -EPINEPHrine INJ 1 MG/ML 1ML AMP IM PRN; -LORATADINE 10 MG TAB PO ONE; -diphenhydrAMINE 50MG/ML VIAL (J1200) IV PRN; -inFLIXimab INJECTION 600 MG in NS 190 ML IV ONE; -methylPREDNISolone 125MG 2ML VIAL IV PRN
[2022-08-20] MEDS ORDERED: ACETAMINOPHEN TAB 650MG DOSE (2X325MG) PO ONE (10:30)
[2022-08-20] MEDS ORDERED: diphenhydrAMINE 50MG/ML VIAL (J1200) IV PRN (10:30)
[2022-08-20] MEDS ORDERED: LORATADINE 10 MG TAB PO ONE (10:30)
[2022-08-20] MEDS ORDERED: inFLIXimab INJECTION 600 MG in NS 190 ML IV ONE (10:30)
[2022-08-20] MEDS ORDERED: methylPREDNISolone 125MG 2ML VIAL IV PRN (10:30)
[2022-08-20] MEDS ORDERED: ALBUTEROL SULFATE 2.5 MG/0.5 ML INH NEB SOLN INH PRN (10:30)
[2022-08-20] MEDS ORDERED: EPINEPHrine INJ 1 MG/ML 1ML AMP IM PRN (10:30)
[2022-08-20 10:55] VITALS: BP 127/66
[2022-08-20 12:00] VITALS: BP 128/73
== END 2022-08-20 12:00 ==
LOC: M INFU 10:15
PROVIDERS: ATTEND Internal Medicine
DX: M45.9 Ankylosing spondylitis of unspecified sites in spine (principal)
CPT/HCPCS: 96413; J1745

== ENCOUNTER → 2022-09-17 | Outpatient (CLI) | payer OTHER ==
[2022-09-17 11:19] LABS: BASO % 0.4 % (0.0-1.0); EOS # 0.1 10^3/uL (0.0-0.5); HEMATOCRIT 39.4 % (36.0-47.0); HEMOGLOBIN 13.6 g/dl (12.0-15.5); LYMPH # 2.6 10^3/uL (1.5-5.0); LYMPH % 32.8 % (24.0-44.0); MEAN CORPUSCULAR HEMOGLOBIN 30.5 pg (27.0-33.0); MEAN CORPUSCULAR HGB CONC 34.5 g/dl (32.0-36.5); MEAN CORPUSCULAR VOLUME 88.3 fl (80.0-96.0); MONO # 0.4 10^3/uL (0.0-0.8); MONO % 4.9 % (2.0-8.0); NEUTROPHILS # 4.8 10^3/uL (1.5-8.5); NEUTROPHILS % 60.8 % (36.0-66.0); PLATELET COUNT, AUTOMATED 181 10^3/uL (150-450); RED BLOOD COUNT 4.46 10^6/uL (4.00-5.40); WHITE BLOOD COUNT 7.8 10^3/uL (4.0-10.0)
[2022-09-17 11:48] LABS: ERYTHROCYTE SEDIMENTATION RATE 7 mm/hr (0-20)
[2022-09-17 12:07] LABS: ALBUMIN 3.9 GM/DL (3.2-5.2); ALT/SGPT 22 U/L (12-78); BILIRUBIN,DIRECT 0.2 MG/DL (0.0-0.2); BILIRUBIN,TOTAL 0.6 MG/DL (0.2-1.0); BLOOD UREA NITROGEN 9 MG/DL (7-18); C REACTIVE PROTEIN QUANTITATIV 0.33 MG/DL (0.00-0.30); CALCIUM LEVEL 9.4 MG/DL (8.5-10.1); CARBON DIOXIDE LEVEL 27 MEQ/L (21-32); CHLORIDE LEVEL 104 MEQ/L (98-107); CREATININE FOR GFR 0.97 MG/DL (0.55-1.30); GLOMERULAR FILTRATION RATE > 60.0 (>58); GLUCOSE, FASTING 108 MG/DL (70-100); POTASSIUM SERUM 3.8 MEQ/L (3.5-5.1); SODIUM LEVEL 138 MEQ/L (136-145); TOTAL PROTEIN 7.1 GM/DL (6.4-8.2)
== END ==
LOC: M LAB 10:48
PROVIDERS: ATTEND Internal Medicine
DX: M45.9 Ankylosing spondylitis of unspecified sites in spine (principal)

== ENCOUNTER 2022-10-04 09:45 | Outpatient (CLI) | payer OTHER ==
[~2022-10-04] VITALS: Ht 162.6 cm; Wt 82.0 kg
[2022-10-04 09:45] VITALS: BP 116/58
[2022-10-04] MEDS ORDERED: ABIL1TAB11 PO (09:57)
[2022-10-04] MEDS ORDERED: methylPREDNISolone 125MG 2ML VIAL IV PRN (10:30)
[2022-10-04] MEDS ORDERED: EPINEPHrine INJ 1 MG/ML 1ML AMP IM PRN (10:30)
[2022-10-04] MEDS ORDERED: ACETAMINOPHEN TAB 650MG DOSE (2X325MG) PO ONE (10:30)
[2022-10-04] MEDS ORDERED: LORATADINE 10 MG TAB PO ONE (10:30)
[2022-10-04] MEDS ORDERED: inFLIXimab INJECTION 600 MG in NS 190 ML IV ONE (10:30)
[2022-10-04] MEDS ORDERED: diphenhydrAMINE 50MG/ML VIAL IV PRN (10:30)
[2022-10-04] MEDS ORDERED: ALBUTEROL SULFATE 2.5 MG/0.5 ML INH NEB SOLN INH PRN (10:30)
[2022-10-04 10:55] VITALS: BP 137/80
[2022-10-04 11:45] VITALS: BP 113/70
== END 2022-10-04 11:50 | disposition home or self-care (01) ==
LOC: M INFU 09:45
PROVIDERS: ATTEND Internal Medicine
DX: M45.9 Ankylosing spondylitis of unspecified sites in spine (principal)
CPT/HCPCS: 96413; J1745

== ENCOUNTER → 2022-11-24 | Outpatient (CLI) | payer OTHER ==
[~2022-11-24] MED LIST changes: +ABIL1TAB11 PO
[2022-11-24 09:42] LABS: BASO % 0.3 % (0.0-1.0); EOS # 0.1 10^3/uL (0.0-0.5); EOS % 1.2 % (0.0-3.0); HEMATOCRIT 38.4 % (36.0-47.0); HEMOGLOBIN 13.4 g/dl (12.0-15.5); LYMPH # 2.5 10^3/uL (1.5-5.0); LYMPH % 36.2 % (24.0-44.0); MEAN CORPUSCULAR HEMOGLOBIN 31.5 pg (27.0-33.0); MEAN CORPUSCULAR HGB CONC 34.9 g/dl (32.0-36.5); MEAN CORPUSCULAR VOLUME 90.1 fl (80.0-96.0); MONO # 0.3 10^3/uL (0.0-0.8); MONO % 4.3 % (2.0-8.0); NEUTROPHILS # 3.9 10^3/uL (1.5-8.5); NEUTROPHILS % 57.6 % (36.0-66.0); PLATELET COUNT, AUTOMATED 164 10^3/uL (150-450); RED BLOOD COUNT 4.26 10^6/uL (4.00-5.40); WHITE BLOOD COUNT 6.8 10^3/uL (4.0-10.0)
[2022-11-24 09:52] LABS: ERYTHROCYTE SEDIMENTATION RATE 1 mm/hr (0-20)
[2022-11-24 10:10] LABS: ALBUMIN 3.9 G/DL (3.2-5.2); ALKALINE PHOSPHATASE 56 U/L (46-116); ALT/SGPT 44 U/L (7.0-40); AST/SGOT 34 U/L (<34); BILIRUBIN,TOTAL 0.6 MG/DL (0.3-1.2); BLOOD UREA NITROGEN 9 MG/DL (9-23); CALCIUM LEVEL 8.8 MG/DL (8.5-10.1); CARBON DIOXIDE LEVEL 25 MMOL/L (20-31); CHLORIDE LEVEL 107 MMOL/L (98-107); CREATININE FOR GFR 0.77 MG/DL (0.55-1.30); GLOMERULAR FILTRATION RATE > 60.0 (>58); GLUCOSE, FASTING 102 MG/DL (60-100); POTASSIUM SERUM 4.1 MMOL/L (3.5-5.1); SODIUM LEVEL 138 MMOL/L (136-145); TOTAL PROTEIN 6.5 G/DL (5.7-8.2)
[2022-11-24 10:11] LABS: BILIRUBIN,DIRECT 0.2 MG/DL (<0.4)
[2022-11-24 10:15] LABS: C REACTIVE PROTEIN QUANTITATIV < 0.40 MG/DL (<1.0)
== END ==
LOC: M LAB 09:21
PROVIDERS: ATTEND Internal Medicine
DX: M45.9 Ankylosing spondylitis of unspecified sites in spine (principal)

== ENCOUNTER 2022-12-21 10:55 | Outpatient (CLI) | payer OTHER ==
[~2022-12-21 10:55] MED LIST changes: +ALBUTEROL SULFATE 2.5MG/0.5ML INH NEB SOLN INH PRN; +EPINEPHrine INJ 1 MG/ML 1ML AMP IM PRN; +diphenhydrAMINE 50MG/ML VIAL IV PRN; +methylPREDNISolone 125MG 2ML VIAL IV PRN
[2022-12-21 11:30] VITALS: BP 120/74
[2022-12-21] MEDS ORDERED: LORATADINE 10 MG TAB PO ONE (11:30)
[2022-12-21] MEDS ORDERED: ACETAMINOPHEN 650MG PO PRIOR TO INFUSION PO ONE (11:30)
[2022-12-21] MEDS ORDERED: NS 1,000 ML IV SCH (11:30)
[2022-12-21] MEDS ORDERED: inFLIXimab INJECTION 600 MG in NS 190 ML IV ONE (11:30)
[2022-12-21 11:45] VITALS: BP 122/74
[2022-12-21 12:30] VITALS: BP 137/86
== END 2022-12-21 12:45 ==
LOC: M INFU 10:55
PROVIDERS: ATTEND Internal Medicine
DX: M45.9 Ankylosing spondylitis of unspecified sites in spine (principal)
CPT/HCPCS: 96413; J1745

== ENCOUNTER 2023-02-01 11:35 | Outpatient (CLI) | payer OTHER ==
[~2023-02-01] VITALS: Ht 162.6 cm; Wt 88.1 kg
[~2023-02-01 11:35] MED LIST changes: +ACETAMINOPHEN 650MG PO PRIOR TO INFUSION PO ONE; +LORATADINE 10 MG TAB PO ONE; +NS 1,000 ML IV SCH; +inFLIXimab INJECTION 600 MG in NS 190 ML IV ONE
[2023-02-01 11:55] VITALS: BP 122/80
== END 2023-02-01 13:45 | disposition home or self-care (01) ==
LOC: M INFU 11:35
PROVIDERS: ATTEND Internal Medicine
DX: M45.9 Ankylosing spondylitis of unspecified sites in spine (principal)
CPT/HCPCS: 96413; J1745

== ENCOUNTER 2023-03-15 11:50 | Outpatient (CLI) | payer OTHER ==
[~2023-03-15] VITALS: Ht 162.6 cm; Wt 88.0 kg
[~2023-03-15 11:50] MED LIST changes: -NS 1,000 ML IV SCH
[2023-03-15 12:11] VITALS: BP 117/85
[2023-03-15 13:08] VITALS: BP 110/74
== END 2023-03-15 13:10 | disposition home or self-care (01) ==
LOC: M INFU 11:50
PROVIDERS: ATTEND Internal Medicine
DX: M54.9 Dorsalgia, unspecified (principal)
CPT/HCPCS: 96413; J1745

== ENCOUNTER → 2023-03-25 | Outpatient (CLI) | payer OTHER ==
[~2023-03-25] MED LIST changes: -ACETAMINOPHEN 650MG PO PRIOR TO INFUSION PO ONE; -ALBUTEROL SULFATE 2.5MG/0.5ML INH NEB SOLN INH PRN; -EPINEPHrine INJ 1 MG/ML 1ML AMP IM PRN; -LORATADINE 10 MG TAB PO ONE; -diphenhydrAMINE 50MG/ML VIAL IV PRN; -inFLIXimab INJECTION 600 MG in NS 190 ML IV ONE; -methylPREDNISolone 125MG 2ML VIAL IV PRN
[2023-03-25 12:58] LABS: BASO % 0.5 % (0.0-1.0); EOS # 0.1 10^3/uL (0.0-0.5); EOS % 1.6 % (0.0-3.0); HEMATOCRIT 37.5 % (36.0-47.0); HEMOGLOBIN 13.2 g/dl (12.0-15.5); LYMPH # 2.3 10^3/uL (1.5-5.0); LYMPH % 35.6 % (24.0-44.0); MEAN CORPUSCULAR HEMOGLOBIN 31.7 pg (27.0-33.0); MEAN CORPUSCULAR HGB CONC 35.2 g/dl (32.0-36.5); MEAN CORPUSCULAR VOLUME 89.9 fl (80.0-96.0); MONO # 0.4 10^3/uL (0.0-0.8); MONO % 5.8 % (2.0-8.0); NEUTROPHILS # 3.6 10^3/uL (1.5-8.5); PLATELET COUNT, AUTOMATED 198 10^3/uL (150-450); RED BLOOD COUNT 4.17 10^6/uL (4.00-5.40); WHITE BLOOD COUNT 6.4 10^3/uL (4.0-10.0)
[2023-03-25 13:05] LABS: ERYTHROCYTE SEDIMENTATION RATE 2 mm/hr (0-20)
[2023-03-25 13:21] LABS: C REACTIVE PROTEIN QUANTITATIV < 0.40 MG/DL (<1.0)
[2023-03-25 13:22] LABS: ALBUMIN 3.8 G/DL (3.2-5.2); ALKALINE PHOSPHATASE 63 U/L (46-116); ALT/SGPT 27 U/L (7.0-40); AST/SGOT 16 U/L (<34); BILIRUBIN,DIRECT 0.2 MG/DL (<0.4); BILIRUBIN,TOTAL 0.5 MG/DL (0.3-1.2); TOTAL PROTEIN 6.4 G/DL (5.7-8.2)
[2023-03-25 20:03] LABS: BLOOD UREA NITROGEN 11 MG/DL (9-23); CALCIUM LEVEL 8.7 MG/DL (8.5-10.1); CARBON DIOXIDE LEVEL 25 MMOL/L (20-31); CHLORIDE LEVEL 107 MMOL/L (98-107); CREATININE FOR GFR 0.82 MG/DL (0.55-1.30); GLOMERULAR FILTRATION RATE > 60.0 (>58); GLUCOSE, FASTING 121 MG/DL (60-100); POTASSIUM SERUM 4.3 MMOL/L (3.5-5.1); SODIUM LEVEL 138 MMOL/L (136-145)
== END ==
LOC: M LAB 11:56
PROVIDERS: ATTEND Internal Medicine
DX: M45.9 Ankylosing spondylitis of unspecified sites in spine (principal)

== ENCOUNTER 2023-04-26 10:50 | Outpatient (CLI) | payer OTHER ==
[~2023-04-26] VITALS: Ht 162.6 cm; Wt 90.0 kg
[2023-04-26 10:50] VITALS: BP 111/72; O2SAT 100
[~2023-04-26 10:50] MED LIST changes: +ALBUTEROL SULFATE 2.5MG/0.5ML INH NEB SOLN INH PRN; +EPINEPHrine INJ 1 MG/ML 1ML AMP IM PRN; +diphenhydrAMINE 50MG/ML VIAL IV PRN; +methylPREDNISolone 125MG 2ML VIAL IV PRN
[2023-04-26] MEDS ORDERED: inFLIXimab INJECTION 600 MG in NS 190 ML IV ONE (11:30)
[2023-04-26] MEDS ORDERED: ACETAMINOPHEN 650MG PO PRIOR TO INFUSION PO ONE (11:30)
[2023-04-26] MEDS ORDERED: LORATADINE 10 MG TAB PO ONE (11:30)
[2023-04-26 12:15] VITALS: BP 112/75; O2SAT 100
[2023-04-26 13:00] VITALS: BP 118/70; O2SAT 98
== END 2023-04-26 13:00 ==
LOC: M INFU 10:50
PROVIDERS: ATTEND Internal Medicine
DX: M45.9 Ankylosing spondylitis of unspecified sites in spine (principal)
CPT/HCPCS: 96413; J1745

== ENCOUNTER → 2023-06-13 | Outpatient (REF) | payer OTHER ==
[~2023-06-13] MED LIST changes: -ALBUTEROL SULFATE 2.5MG/0.5ML INH NEB SOLN INH PRN; -EPINEPHrine INJ 1 MG/ML 1ML AMP IM PRN; -diphenhydrAMINE 50MG/ML VIAL IV PRN; -methylPREDNISolone 125MG 2ML VIAL IV PRN
[2023-06-13 17:35] LABS: BASO % 0.3 % (0.0-1.0); EOS # 0.1 10^3/uL (0.0-0.5); EOS % 0.9 % (0.0-3.0); HEMATOCRIT 41.1 % (36.0-47.0); HEMOGLOBIN 14.1 g/dl (12.0-15.5); LYMPH # 2.4 10^3/uL (1.5-5.0); LYMPH % 26.7 % (24.0-44.0); MEAN CORPUSCULAR HEMOGLOBIN 31.2 pg (27.0-33.0); MEAN CORPUSCULAR HGB CONC 34.3 g/dl (32.0-36.5); MEAN CORPUSCULAR VOLUME 90.9 fl (80.0-96.0); MONO # 0.4 10^3/uL (0.0-0.8); MONO % 4.3 % (2.0-8.0); NEUTROPHILS # 6.1 10^3/uL (1.5-8.5); NEUTROPHILS % 67.6 % (36.0-66.0); PLATELET COUNT, AUTOMATED 188 10^3/uL (150-450); RED BLOOD COUNT 4.52 10^6/uL (4.00-5.40); WHITE BLOOD COUNT 9.1 10^3/uL (4.0-10.0)
[2023-06-13 17:41] LABS: C REACTIVE PROTEIN QUANTITATIV < 0.40 MG/DL (<1.0)
[2023-06-13 17:43] LABS: BLOOD UREA NITROGEN 7 MG/DL (9-23); CALCIUM LEVEL 9.4 MG/DL (8.5-10.1); CARBON DIOXIDE LEVEL 28 MMOL/L (20-31); CHLORIDE LEVEL 107 MMOL/L (98-107); CREATININE FOR GFR 0.81 MG/DL (0.55-1.30); GLOMERULAR FILTRATION RATE > 60.0 (>58); GLUCOSE, FASTING 80 MG/DL (60-100); POTASSIUM SERUM 4.2 MMOL/L (3.5-5.1); SODIUM LEVEL 142 MMOL/L (136-145)
[2023-06-13 17:51] LABS: ERYTHROCYTE SEDIMENTATION RATE 3 mm/hr (0-20)
[2023-06-15 14:10] LABS: SSA SJOGRENS A <0.2 AI (0.0-0.9); SSB SJOGRENS B <0.2 AI (0.0-0.9)
== END ==
LOC: M SFHCRHEU 12:43
PROVIDERS: ATTEND Internal Medicine
DX: R68.2 Dry mouth, unspecified (principal); M45.9 Ankylosing spondylitis of unspecified sites in spine; Z79.899 Other long term (current) drug therapy
CPT/HCPCS: 80048; 82306; 85025; 85652; 86140; 86235; G0463; G2212; J1040

== ENCOUNTER → 2023-06-17 | Outpatient (CLI) | payer OTHER ==
[~2023-06-17] VITALS: Ht 162.6 cm; Wt 87.7 kg
[~2023-06-17] MED LIST changes: +ACETAMINOPHEN 650MG ER TAB (TYLENOL ARTHRITIS) PO ONE; +ALBUTEROL SULFATE 2.5MG/0.5ML INH NEB SOLN INH PRN; +EPINEPHrine INJ 1 MG/ML 1ML AMP IM PRN; +LORATADINE 10 MG TAB PO ONE; +diphenhydrAMINE 50MG/ML VIAL IV PRN; +inFLIXimab INJECTION 700 MG in NS 180 ML IV ONE; +methylPREDNISolone 125MG 2ML VIAL IV PRN
[2023-06-17 07:50] VITALS: BP 105/60; O2SAT 99
[2023-06-17 10:00] VITALS: BP 114/71; O2SAT 97
== END ==
LOC: M INFU 07:34
PROVIDERS: ATTEND Internal Medicine
DX: M45.9 Ankylosing spondylitis of unspecified sites in spine (principal)
CPT/HCPCS: 96413; J1745

== ENCOUNTER 2023-09-09 08:28 | Outpatient (CLI) | payer OTHER ==
[~2023-09-09] VITALS: Ht 162.6 cm; Wt 87.2 kg
[~2023-09-09 08:28] MED LIST changes: -ACETAMINOPHEN 650MG ER TAB (TYLENOL ARTHRITIS) PO ONE; -LORATADINE 10 MG TAB PO ONE; -inFLIXimab INJECTION 700 MG in NS 180 ML IV ONE
[2023-09-09] MEDS ORDERED: inFLIXimab INJECTION 700 MG in NS 180 ML IV ONE (09:00)
[2023-09-09] MEDS ORDERED: ACETAMINOPHEN 650MG ER TAB (TYLENOL ARTHRITIS) PO ONE (09:00)
[2023-09-09] MEDS ORDERED: LORATADINE 10 MG TAB PO ONE (09:00)
[2023-09-09 09:03] VITALS: BP 110/73; TEMP 97; O2SAT 98
[2023-09-09 10:00] VITALS: BP 99/61; TEMP 97.8; O2SAT 97
[2023-09-09 10:45] VITALS: BP 127/69; TEMP 97.3; O2SAT 98
== END 2023-09-09 10:50 ==
LOC: M INFU 08:28
PROVIDERS: ATTEND Internal Medicine
DX: M45.9 Ankylosing spondylitis of unspecified sites in spine (principal)
CPT/HCPCS: 96413; J1745

== ENCOUNTER 2023-10-11 10:00 | Day surgery (SDC) | payer OTHER ==
[~2023-10-11] VITALS: Ht 162.6 cm; Wt 84.8 kg
[~2023-10-11 10:00] MED LIST changes: -ALBUTEROL SULFATE 2.5MG/0.5ML INH NEB SOLN INH PRN; -EPINEPHrine INJ 1 MG/ML 1ML AMP IM PRN; +FLUO-96 PO; +FOLI1TAB11 PO; +HYDR-3363 PO; +METH5INJ SC; +NS 1,000 ML IV ONE; -diphenhydrAMINE 50MG/ML VIAL IV PRN; -methylPREDNISolone 125MG 2ML VIAL IV PRN
[2023-10-11] MEDS ORDERED: fentaNYL 100 MCG/2 ML INJECTION As Ordered ONE (13:01)
[2023-10-11] MEDS ORDERED: propofoL 200 MG/20 ML VIAL As Ordered ONE ×3 (13:01→13:37)
[2023-10-11] MEDS ORDERED: LIDOCAINE 2% 100MG/5ML SDV (FOR ANES.) As Ordered ONE (13:01)
[2023-10-11] MEDS ORDERED: GLYCOPYRROLATE INJ 0.2 MG/ML 2 ML VIAL As Ordered ONE (13:36)
[2023-10-11 13:49] VITALS: TEMP 97.5
[2023-10-11] MEDS ORDERED: ONDANSETRON 4MG 2ML VIAL IV ONE (14:00)
[2023-10-11 14:13] VITALS: BP 101/67; O2SAT 96
== END 2023-10-11 14:20 | disposition home or self-care (01) ==
LOC: M OPP 10:00
PROVIDERS: ATTEND Internal Medicine Gastroenterology
DX: D12.6 Benign neoplasm of colon, unspecified (principal); K57.30 Diverticulosis of large intestine without perforation or abscess without bleeding; K64.4 Residual hemorrhoidal skin tags; K64.8 Other hemorrhoids; K52.9 Noninfective gastroenteritis and colitis, unspecified; K29.70 Gastritis, unspecified, without bleeding; K44.9 Diaphragmatic hernia without obstruction or gangrene; K21.00 Gastro-esophageal reflux disease with esophagitis, without bleeding; K31.89 Other diseases of stomach and duodenum; K22.89 Other specified disease of esophagus; F17.210 Nicotine dependence, cigarettes, uncomplicated; Z79.620 Long term (current) use of immunosuppressive biologic; Z79.631 Long term (current) use of antimetabolite agent; Z79.899 Other long term (current) drug therapy; Z91.013 Allergy to seafood
CPT/HCPCS: 43239; 45380; 45385; 88305; J2405; J3010

== ENCOUNTER 2023-10-21 09:00 | Outpatient (CLI) | payer OTHER ==
[~2023-10-21] VITALS: Ht 162.6 cm; Wt 84.5 kg
[2023-10-21 09:00] VITALS: BP 112/64; O2SAT 98
[~2023-10-21 09:00] MED LIST changes: +ALBUTEROL SULFATE 2.5MG/0.5ML INH NEB SOLN INH PRN; +EPINEPHrine INJ 1 MG/ML 1ML AMP IM PRN; -NS 1,000 ML IV ONE; +diphenhydrAMINE 50MG/ML VIAL IV PRN; +methylPREDNISolone 125MG 2ML VIAL IV PRN
[2023-10-21] MEDS ORDERED: inFLIXimab INJECTION 700 MG in NS 180 ML IV ONE (09:15)
[2023-10-21] MEDS ORDERED: ACETAMINOPHEN 650MG ER TAB (TYLENOL ARTHRITIS) PO ONE (09:15)
[2023-10-21] MEDS ORDERED: LORATADINE 10 MG TAB PO ONE (09:15)
[2023-10-21 10:00] VITALS: BP 112/69; O2SAT 98
[2023-10-21 10:54] VITALS: BP 117/64; O2SAT 98
== END 2023-10-21 10:55 | disposition home or self-care (01) ==
LOC: M INFU 09:00
PROVIDERS: ATTEND Internal Medicine
DX: M45.9 Ankylosing spondylitis of unspecified sites in spine (principal); Z91.013 Allergy to seafood
CPT/HCPCS: 96413; J1745

== ENCOUNTER → 2024-03-19 | Outpatient (CLI) | payer BC ==
[~2024-03-19] MED LIST changes: -ALBUTEROL SULFATE 2.5MG/0.5ML INH NEB SOLN INH PRN; -EPINEPHrine INJ 1 MG/ML 1ML AMP IM PRN; -diphenhydrAMINE 50MG/ML VIAL IV PRN; -methylPREDNISolone 125MG 2ML VIAL IV PRN
[2024-03-19 14:02] LABS: HEMATOCRIT 37.9 % (36.0-47.0); HEMOGLOBIN 13.5 g/dl (12.0-15.5); LYMPH % 25.5 % (24.0-44.0); MEAN CORPUSCULAR HEMOGLOBIN 31.8 pg (27.0-33.0); MEAN CORPUSCULAR HGB CONC 35.6 g/dl (32.0-36.5); MEAN CORPUSCULAR VOLUME 89.4 fl (80.0-96.0); MONO % 4.2 % (2.0-8.0); NEUTROPHILS % 68.1 % (36.0-66.0); PLATELET COUNT, AUTOMATED 182 10^3/uL (150-450); RED BLOOD COUNT 4.24 10^6/uL (4.00-5.40); WHITE BLOOD COUNT 7.5 10^3/uL (4.0-10.0)
[2024-03-19 14:03] LABS: BASO % 0.4 % (0.0-1.0); EOS # 0.1 10^3/uL (0.0-0.5); EOS % 1.3 % (0.0-3.0); LYMPH # 1.9 10^3/uL (1.5-5.0); MONO # 0.3 10^3/uL (0.0-0.8); NEUTROPHILS # 5.1 10^3/uL (1.5-8.5)
[2024-03-19 14:16] LABS: ERYTHROCYTE SEDIMENTATION RATE 4 mm/hr (0-20)
[2024-03-19 14:36] LABS: C REACTIVE PROTEIN QUANTITATIV < 0.40 MG/DL (<1.0)
[2024-03-19 14:38] LABS: ALBUMIN 3.7 G/DL (3.2-5.2); ALKALINE PHOSPHATASE 73 U/L (46-116); ALT/SGPT 26 U/L (7.0-40); AST/SGOT 15 U/L (<34); BILIRUBIN,DIRECT 0.2 MG/DL (<0.4); BILIRUBIN,TOTAL 0.5 MG/DL (0.3-1.2); BLOOD UREA NITROGEN 10 MG/DL (9-23); CALCIUM LEVEL 8.7 MG/DL (8.5-10.1); CARBON DIOXIDE LEVEL 24 MMOL/L (20-31); CHLORIDE LEVEL 107 MMOL/L (98-107); CREATININE FOR GFR 0.78 MG/DL (0.55-1.30); GLOMERULAR FILTRATION RATE > 60.0 (>58); GLUCOSE, FASTING 121 MG/DL (60-100); SODIUM LEVEL 138 MMOL/L (136-145); TOTAL PROTEIN 6.5 G/DL (5.7-8.2)
== END ==
LOC: M LAB 13:38
PROVIDERS: ATTEND Internal Medicine
DX: M45.9 Ankylosing spondylitis of unspecified sites in spine (principal)

== ENCOUNTER → 2024-06-14 | Outpatient (REF) | payer BC | LOC: M SFHCRHEU 17:08 | PROVIDERS: ATTEND Internal Medicine | DX: Z53.9 Procedure and treatment not carried out, unspecified reason (principal) ==

== ENCOUNTER → 2024-08-14 | Outpatient (CLI) | payer BC ==
[2024-08-14 16:36] LABS: BASO % 0.4 % (0.0-1.0); EOS # 0.1 10^3/uL (0.0-0.5); EOS % 1.1 % (0.0-3.0); HEMATOCRIT 43.6 % (36.0-47.0); HEMOGLOBIN 15.3 g/dl (12.0-15.5); LYMPH # 3.3 10^3/uL (1.5-5.0); LYMPH % 30.7 % (24.0-44.0); MEAN CORPUSCULAR HEMOGLOBIN 32.4 pg (27.0-33.0); MEAN CORPUSCULAR HGB CONC 35.1 g/dl (32.0-36.5); MEAN CORPUSCULAR VOLUME 92.4 fl (80.0-96.0); MONO # 0.4 10^3/uL (0.0-0.8); MONO % 3.9 % (2.0-8.0); NEUTROPHILS # 6.9 10^3/uL (1.5-8.5); NEUTROPHILS % 63.5 % (36.0-66.0); PLATELET COUNT, AUTOMATED 252 10^3/uL (150-450); RED BLOOD COUNT 4.72 10^6/uL (4.00-5.40); WHITE BLOOD COUNT 10.9 10^3/uL (4.0-10.0)
[2024-08-14 16:43] LABS: ERYTHROCYTE SEDIMENTATION RATE 5 mm/hr (0-20)
[2024-08-14 17:03] LABS: C REACTIVE PROTEIN QUANTITATIV < 0.40 MG/DL (<1.0)
[2024-08-14 17:05] LABS: ALBUMIN 4.3 G/DL (3.2-5.2); ALKALINE PHOSPHATASE 86 U/L (46-116); ALT/SGPT 22 U/L (7.0-40); AST/SGOT 13 U/L (<34); BILIRUBIN,DIRECT 0.1 MG/DL (<0.4); BILIRUBIN,TOTAL 0.4 MG/DL (0.3-1.2); BLOOD UREA NITROGEN 11 MG/DL (9-23); CALCIUM LEVEL 9.5 MG/DL (8.5-10.1); CARBON DIOXIDE LEVEL 28 MMOL/L (20-31); CHLORIDE LEVEL 106 MMOL/L (98-107); CREATININE FOR GFR 0.79 MG/DL (0.55-1.30); GLOMERULAR FILTRATION RATE > 60.0 (>58); GLUCOSE, FASTING 91 MG/DL (60-100); SODIUM LEVEL 137 MMOL/L (136-145); TOTAL PROTEIN 7.4 G/DL (5.7-8.2)
== END ==
LOC: M WUC 13:02
PROVIDERS: ATTEND Internal Medicine
DX: M45.9 Ankylosing spondylitis of unspecified sites in spine (principal)

== ENCOUNTER → 2025-03-26 | Outpatient (CLI) | payer BC, OTHER ==
[2025-03-26 18:52] LABS: BASO % 0.5 % (0.0-1.0); EOS # 0.1 10^3/uL (0.0-0.5); EOS % 1.2 % (0.0-3.0); HEMATOCRIT 40.4 % (36.0-47.0); LYMPH # 2.9 10^3/uL (1.5-5.0); LYMPH % 34.4 % (24.0-44.0); MEAN CORPUSCULAR HEMOGLOBIN 31.2 pg (27.0-33.0); MEAN CORPUSCULAR HGB CONC 34.7 g/dl (32.0-36.5); MONO # 0.4 10^3/uL (0.0-0.8); MONO % 4.3 % (2.0-8.0); NEUTROPHILS % 59.2 % (36.0-66.0); PLATELET COUNT, AUTOMATED 193 10^3/uL (150-450); RED BLOOD COUNT 4.49 10^6/uL (4.00-5.40); WHITE BLOOD COUNT 8.4 10^3/uL (4.0-10.0)
[2025-03-26 18:58] LABS: ERYTHROCYTE SEDIMENTATION RATE 4 mm/hr (0-20)
[2025-03-26 19:05] LABS: C REACTIVE PROTEIN QUANTITATIV < 0.50 MG/DL (<1.0)
[2025-03-26 19:06] LABS: ALBUMIN 4.2 G/DL (3.2-5.2); ALKALINE PHOSPHATASE 67 U/L (35-104); ALT/SGPT 24 U/L (7.0-40); AST/SGOT 17 U/L (<34); BILIRUBIN,DIRECT 0.2 MG/DL (<0.4); BILIRUBIN,TOTAL 0.6 MG/DL (0.3-1.2); BLOOD UREA NITROGEN 7 MG/DL (9-23); CALCIUM LEVEL 9.4 MG/DL (8.5-10.1); CARBON DIOXIDE LEVEL 27 MMOL/L (20-31); CHLORIDE LEVEL 106 MMOL/L (98-107); CREATININE FOR GFR 0.96 MG/DL (0.55-1.30); GLOMERULAR FILTRATION RATE 73.9 (>58); GLUCOSE, FASTING 91 MG/DL (60-100); POTASSIUM SERUM 3.8 MMOL/L (3.5-5.1); SODIUM LEVEL 142 MMOL/L (136-145); TOTAL PROTEIN 6.9 G/DL (5.7-8.2)
== END ==
LOC: M WUC 12:54
PROVIDERS: ATTEND Internal Medicine
DX: M45.9 Ankylosing spondylitis of unspecified sites in spine (principal)

== ENCOUNTER → 2025-07-16 | Outpatient (CLI) | payer OTHER ==
[2025-07-16 13:00] LABS: BASO # 0.0 10^3/uL (0.0-0.2); BASO % 0.3 % (0.0-1.0); EOS # 0.1 10^3/uL (0.0-0.5); EOS % 1.0 % (0.0-3.0); LYMPH # 3.2 10^3/uL (1.5-5.0); LYMPH % 27.6 % (24.0-44.0); MONO # 0.4 10^3/uL (0.0-0.8); MONO % 3.7 % (2.0-8.0); NEUTROPHILS # 7.6 10^3/uL (1.5-8.5); NEUTROPHILS % 66.7 % (36.0-66.0); PLATELET COUNT, AUTOMATED 270 10^3/uL (150-450)
[2025-07-16 13:09] LABS: ERYTHROCYTE SEDIMENTATION RATE 6 mm/hr (0-20)
[2025-07-16 13:32] LABS: ALT/SGPT 28 U/L (7.0-40); AST/SGOT 27 U/L (<34); C REACTIVE PROTEIN QUANTITATIV < 0.50 MG/DL (<1.0); CALCIUM LEVEL 9.7 MG/DL (8.5-10.1); CARBON DIOXIDE LEVEL 28 MMOL/L (20-31); CHLORIDE LEVEL 106 MMOL/L (98-107); CREATININE FOR GFR 0.80 MG/DL (0.55-1.30); GLOMERULAR FILTRATION RATE > 90.0 (>58); POTASSIUM SERUM 4.0 MMOL/L (3.5-5.1); SODIUM LEVEL 143 MMOL/L (136-145)
== END ==
LOC: M WUC 10:24
PROVIDERS: ATTEND Internal Medicine
DX: M45.9 Ankylosing spondylitis of unspecified sites in spine (principal)

== ENCOUNTER 2025-09-10 10:24 | Emergency (ER) | payer OTHER ==
[~2025-09-10] VITALS: Ht 162.6 cm; Wt 88.6 kg
[~2025-09-10 10:24] MED LIST changes: -BUSP15TA47 PO; -CLOT1CRE56 TOP; -D3 +TAB PO; -FLUO60TA16 PO; -MAGN250T17 PO; -MAGN500C2 PO; -MULT-193 PO; -SIMP50IN2 SC
[2025-09-10] MEDS ORDERED: BUSP15TA47 PO (10:49)
[2025-09-10 12:04] LABS: PLATELET COUNT, AUTOMATED 220 10^3/uL (150-450)
[2025-09-10 12:11] LABS: CALCIUM LEVEL 9.7 MG/DL (8.5-10.1); CARBON DIOXIDE LEVEL 21 MMOL/L (20-31); CHLORIDE LEVEL 109 MMOL/L (98-107); CREATININE FOR GFR 0.77 MG/DL (0.55-1.30); GLOMERULAR FILTRATION RATE > 90.0 (>58); POTASSIUM SERUM 3.4 MMOL/L (3.5-5.1); SODIUM LEVEL 140 MMOL/L (136-145)
[2025-09-10] MEDS: NS (Normal Saline) 0.9% 1,000 ML IV ONE (12:33)
[2025-09-10] MEDS: POTASSIUM CHLORIDE 10MEQ SR TABLET PO ONE (12:33)
[2025-09-10 12:49] LABS: ALT/SGPT 30 U/L (7.0-40); AST/SGOT 22 U/L (<34)
[2025-09-10 12:52] LABS: FREE T4 1.07 NG/DL (0.89-1.76)
[2025-09-10 12:54] LABS: KETONE, URINE AUTO RFX NEGATIVE (NEGATIVE); LEUKOCYTE ESTERASE UR AUTO RFX NEGATIVE (NEGATIVE); MUCUS, URINE RFX SMALL (NEGATIVE); NITRITE, URINE AUTO RFX NEGATIVE (NEGATIVE); RBC, URINE AUTO RFX 0 /HPF (0-3); SQUAM EPITHELIAL CELL UR AURFX 8 /HPF (0-6); WBC, URINE AUTO RFX 0 /HPF (0-3)
[2025-09-10] MEDS ORDERED: ISOVUE-370 76% 100 ML VIAL As Ordered ONE (12:55)
[2025-09-10] MEDS ORDERED: SIMP50IN2 SC (13:44)
[2025-09-10] MEDS ORDERED: D3 +TAB PO (13:44)
[2025-09-10] MEDS ORDERED: FLUO60TA16 PO (13:44)
[2025-09-10] MEDS ORDERED: CLOT1CRE56 TOP (13:44)
[2025-09-10] MEDS ORDERED: MULT-193 PO (13:44)
[2025-09-10] MEDS ORDERED: MAGN250T17 PO (13:50)
[2025-09-10] MEDS ORDERED: HOME MED LIST COMPLETE! XX SCH (13:50)
[2025-09-10] MEDS ORDERED: MAGN500C2 PO (14:37)
[2025-09-10 14:59] LABS: APPEARANCE, CSF CLEAR (CLEAR); COLOR, CSF COLORLESS (COLORLESS); CSF TUBE# CELL CNT TUBE 1
[2025-09-10 15:03] LABS: CSF TUBE# CELL CNT TUBE 4
[2025-09-10 15:04] LABS: APPEARANCE, CSF CLEAR (CLEAR); COLOR, CSF COLORLESS (COLORLESS)
[2025-09-10 15:44] LABS: CSF TUBE# TP TUBE 2; TOTAL PROTEIN,CSF 31.6 MG/DL (15-45)
[2025-09-10 15:47] LABS: CSF TUBE# GLU TUBE 2; GLUCOSE CSF 69.0 MG/DL (40-70)
[2025-09-10] MEDS: ACETAMINOPHEN 325 MG TAB PO ONE (16:53)
[2025-09-10 16:55] VITALS: BP 111/68; TEMP 97.3; O2SAT 97
== END 2025-09-10 17:03 | disposition home or self-care (01) ==
LOC: M ED 10:24
DX: R51.9 Headache, unspecified (principal); M54.2 Cervicalgia; R91.1 Solitary pulmonary nodule; I67.1 Cerebral aneurysm, nonruptured; F32.A Depression, unspecified; M54.50 Low back pain, unspecified; F17.200 Nicotine dependence, unspecified, uncomplicated; Z90.49 Acquired absence of other specified parts of digestive tract; Z79.899 Other long term (current) drug therapy; Z91.013 Allergy to seafood
CPT/HCPCS: 70450; 70496; 70498; 72050; 80048; 80076; 81001; 82140; 82945; 84157; 84439; 84443; 85027; 87040; 87070; 87205; 87483; 89050; 93005; 93041; 94760; 96361; 96374; 99285; J2765; Q9967

== ENCOUNTER → 2025-09-10 | Outpatient (CLI) | payer OTHER ==
[~2025-09-10] MED LIST changes: +BUSP15TA47 PO; +CLOT1CRE56 TOP; +D3 +TAB PO; +FLUO60TA16 PO; +MAGN250T17 PO; +MAGN500C2 PO; +MULT-193 PO; +SIMP50IN2 SC
== END ==
LOC: M WUC 08:10
PROVIDERS: ATTEND Internal Medicine
DX: M54.2 Cervicalgia (principal)

== ENCOUNTER 2025-10-23 14:11 | Emergency (ER) | payer OTHER ==
[~2025-10-23] VITALS: Ht 162.6 cm; Wt 92.0 kg
[~2025-10-23 14:11] MED LIST changes: +BUSP15TA47 PO; +CLOT1CRE56 TOP; +D3 +TAB PO; +FLUO60TA16 PO; +MAGN250T17 PO; +MAGN500C2 PO; +MULT-193 PO; +SIMP50IN2 SC
[2025-10-23] MEDS ORDERED: BUSP15TA47 PO (14:58)
[2025-10-23] MEDS ORDERED: TRAZ-257 PO (14:58)
[2025-10-23] MEDS ORDERED: [UNRECOGNIZED DRUG - CODE] PO (14:58)
[2025-10-23] MEDS ORDERED: CEVI1CAP PO (14:58)
[2025-10-23] MEDS ORDERED: DULO1CAP6 PO (14:58)
[2025-10-23 15:14] LABS: BASO # 0.0 10^3/uL (0.0-0.2); BASO % 0.3 % (0.0-1.0); EOS # 0.2 10^3/uL (0.0-0.5); EOS % 1.1 % (0.0-3.0); LYMPH # 3.5 10^3/uL (1.5-5.0); LYMPH % 26.2 % (24.0-44.0); MONO # 0.6 10^3/uL (0.0-0.8); MONO % 4.3 % (2.0-8.0); NEUTROPHILS # 9.0 10^3/uL (1.5-8.5); NEUTROPHILS % 67.4 % (36.0-66.0); PLATELET COUNT, AUTOMATED 211 10^3/uL (150-450)
[2025-10-23 15:33] LABS: CK-MB VALUE MASS 1.1 NG/ML (<3.6)
[2025-10-23 15:35] LABS: ALT/SGPT 28 U/L (7.0-40); AST/SGOT 22 U/L (<34); CALCIUM LEVEL 8.9 MG/DL (8.5-10.1); CARBON DIOXIDE LEVEL 25 MMOL/L (20-31); CHLORIDE LEVEL 110 MMOL/L (98-107); CREATININE FOR GFR 0.82 MG/DL (0.55-1.30); GLOMERULAR FILTRATION RATE 89.3 (>58); POTASSIUM SERUM 3.8 MMOL/L (3.5-5.1); SODIUM LEVEL 142 MMOL/L (136-145)
[2025-10-23 15:37] LABS: HCG, SERUM QUALITATIVE NEGATIVE (NEGATIVE)
[2025-10-23 15:38] LABS: FREE T4 0.82 NG/DL (0.89-1.76)
[2025-10-23 15:40] LABS: CPK CREATINE PHOSPHOKINASE 74 U/L (34-145); MB/CK RELATIVE INDEX 1.48 (< OR =4)
[2025-10-23] MEDS ORDERED: ISOVUE-370 76% 100 ML VIAL As Ordered ONE (15:56)
[2025-10-23 17:02] LABS: CK-MB VALUE MASS < 1.0 NG/ML (<3.6)
[2025-10-23 17:05] LABS: CPK CREATINE PHOSPHOKINASE 68 U/L (34-145)
[2025-10-23 18:38] VITALS: BP 113/71; TEMP 98.2; O2SAT 97
== END 2025-10-23 18:40 | disposition home or self-care (01) ==
LOC: M ED 14:11
DX: R55 Syncope and collapse (principal); R00.0 Tachycardia, unspecified; R91.1 Solitary pulmonary nodule; I67.1 Cerebral aneurysm, nonruptured; F32.A Depression, unspecified; R51.9 Headache, unspecified; K57.30 Diverticulosis of large intestine without perforation or abscess without bleeding; F41.9 Anxiety disorder, unspecified; D64.9 Anemia, unspecified; Z91.013 Allergy to seafood; Z79.899 Other long term (current) drug therapy
CPT/HCPCS: 36415; 70450; 70496; 70498; 71046; 80053; 82248; 82550; 82553; 84439; 84443; 84484; 84703; 85025; 93005; 93041; 94760; 99285; Q9967

== ENCOUNTER → 2025-11-02 | Outpatient (REF) | payer OTHER ==
[~2025-11-02] MED LIST changes: +CEVI1CAP PO; +DULO1CAP6 PO; +TRAZ-257 PO; +[UNRECOGNIZED DRUG - CODE] PO
[2025-11-02 11:58] LABS: CREATININE 24 HOUR, URINE 1288.7 MG/24HR (600-1800); CREATININE, URINE 52.6 MG/DL
== END ==
LOC: M LAB REF 10:39
PROVIDERS: ATTEND Internal Medicine Endocrinology, Diabetes & Metabolism
DX: R03.0 Elevated blood-pressure reading, without diagnosis of hypertension (principal)